=== PATIENT | male | born 1955 | race African-American/Black ===

== ENCOUNTER 2018-06-21 04:09 | Inpatient (IN) | payer OTHER ==
[~2018-06-21] VITALS: Ht 172.7 cm; Wt 85.0 kg
[~2018-06-21 04:09] MED LIST: CLON-379 PO; LEVE500S8 PO; LISI10TA2 PO; METO-319 PO
[2018-06-21] MEDS ORDERED: SOD CHLORIDE 0.9% 1,000 ML IV STA (04:31)
[2018-06-21] MEDS ORDERED: LORAZEPAM 2 MG INJ IV STA (04:31)
[2018-06-21] MEDS ORDERED: LEVETIRACETAM 1000 MG (PMX) 100 ML IVPB STA (04:31)
[2018-06-21] MEDS ORDERED: LORAZEPAM 2 MG INJ ONE (04:31)
[2018-06-21 07:57] VITALS: BP 177/107; PULSE 87; RESP 18
[2018-06-21 08:18] VITALS: PULSE 100
[2018-06-21 09:29] VITALS: Ht 172.7 cm; Wt 85.0 kg
--- NOTE | 2018-06-21 11:28 | HP ---
Date/Time of Note Date/Time of Note DATE: 06/21/18 TIME: 11:26 Admit Date/Time Admit Date/Time Admit Date/Time Jun 21, 2018 at 05:32 History & Physical HPI/ROS ROS All systems reviewed and are negative except as per history of present illness. PMHX Primary Care Physician Han Carranza MD [age]-year-old male who reportedly was brought to the emergency room by his brother. He has a history of seizure disorder and his brother had noted that he was mumbling and tried to wake him up and was unresponsive and saw him forming in the mouth so he knew he was having a seizure. The emergency room, he was treated with Keppra and Ativan, no further seizures have been noted. There is no fever, but the patient does have hyponatremia and elevated blood pressure. Is being admitted for breakthrough seizures. he tells me he's doing much better and is back to his ba . Social Hx Hx Alcohol Use: Yes (beer, 1-2 drinks, 06/20/18) Hx Substance Use: Yes Hx Tobacco Use: No Smoking Status: Current every day smoker Physical Exam Physical Exam Vital Signs Date Temp Pulse Resp B/P (MAP) Pulse Ox O2 O2 Flow FiO2 Time Delivery Rate 06/21/18 100 08:18 06/21/18 98.6 18 177/107 95 07:57 (130) 06/21/18 Nasal 2.0 07:47 Cannula Const: [XOXOXO] Head: [Atraumatic] Eyes: [Normal Conjunctiva] ENT: [Normal External Ears, Nose and Mouth.] Neck: [Full range of motion. No meningismus.] Resp: [Clear to auscultation bilaterally] Cardio: [Regular rate and rhythm, no murmurs] Abd: [Soft, non tender, non distended. Normal bowel sounds] Skin: [No petechiae or rashes] Back: [No midline or flank tenderness] Ext: [No cyanosis, or edema] Neuro: [Awake and alert] Psych: [Normal Mood and Affect] Result Diagram: 06/21/186 06/21/18445 Assessment/Plan Assessment/Plan Imaging 1. PROCEDURE: CT BRAIN WITHOUT CONTRAST CLINICAL INDICATION: 63-year-old male with seizure. The patient has a history of prior subdural hematoma. TECHNIQUE: The study was performed utilizing GE LightSpeed VCT 64-slice CT scanner. Direct axial sections were obtained from the foramen magnum to the vertex without the use of intravenous contrast material. Sagittal and coronal reformations were obtained. One or more the following dose reduction techniques were utilized: automated exposure control, adjustment of the mA and/or kV according to patient's size and/or use of iterative reconstruction technique. DICOM images are available. The images were viewed on a PACS workstation. CTD/ vol = 39.64 mGy; Total Exam DLP = 713.51 mGy.cm. COMPARISON: CT brain August 27, 2014; CT brain August 12, 2014; MRI brain July 21, 2014. FINDINGS: There is marked right inferior frontal encephalomalacia. There is extensive right anterior temporal encephalomalacia focal dystrophic calcification measuring approximately 9 x 9 x 6 mm in axial image 2-13. There is ex vacuo dilatation of the right frontal and temporal horns. There is mild prominence of the sulci and cisternal spaces consistent with diffuse volume loss with compensatory ventricular enlargement. There is no evidence for mass effect or midline shift. Calcifications are seen within the intracranial carotid arteries bilaterally. There is no evidence for acute intra or extra-axial blood. The bony calvarium is intact. There is mild mucosal thickening within the ethmoid air cells bilaterally. No air-fluid levels are noted. The mastoid air cells are without significant soft tissue. IMPRESSION: 1. Marked right inferior frontal and extensive right anterior temporal encephalomalacia with dystrophic calcification without significant change most likely from prior trauma. 2. Mild diffuse volume loss. 3. Vascular calcifications. 5. Mild mucosal thickening ethmoid air cells. .Mele Jeronimo MD, Date Time Electronically viewed and signed by .Mele Jeronimo MD, on 06/21/2018 05:59 .M/ CC: MORELIA MORALES [id number] PROCEDURE: CHEST - 1 VIEW CLINICAL INDICATION: 63-year-old male with seizure. TECHNIQUE: A single frontal AP semi-erect view of the chest was performed. The images were reviewed on a PACS workstation. COMPARISON: CR CHEST 08/12/2014 FINDINGS: The patient is mildly tilted to the left. The cardiomediastinal silhouette is within normal limits. There is a shallow inspiration. There is mild bibasilar subsegmental atelectasis. There is no evidence for focal consolidation. There is no evidence for congestive heart failure. There is no evidence for pneumothorax. There is an old left posterior fifth rib fracture deformity. IMPRESSION: 1. Shallow inspiration with mild bibasilar subsegmental atelectasis. 2. Old left posterior fifth rib fracture deformity. .Mele Jeronimo MD, MD Date Time Electronically viewed and signed by .Mele Jeronimo MD, MD on 06/21/2018 06:03 .M/ CC: MORELIA MORALES [id number] I reviewed EKG Rate: Within normal limits Rhythm: sinus Note: No ST elevation or depressions noted concerning for acute ischemic event. MRI brain with and without contrast July 2014 showed the followin. Right frontal/parietal subarachnoid hemorrhage, acute on chronic 2. Encephalomalacia in the right temporal lobe 3. 7 mm dural based enhancing mass arising from the right olfactory groove concerning for meningioma versus hemorrhagic focus as well as cerebral volume loss. At that time patient had left the hospital AGAINST MEDICAL ADVICE before workup could be completed. CT at this time shows marked right inferior frontal and extensive right anterior temporal encephalomalacia with calcification likely from prior hemorrhage assessment and plan: 1. Breakthrough seizures 2. History of intracranial hemorrhage with subsequent significant encephal omalacia 3. Prior MRI concern for possible mass 4. Hyponatremia which could be contributing to #1 5. History of seizure disorder rule out noncompliance consent #1 6. Hypertension with suboptimal control 7. Tobacco abuse 8. Marijuana user ? 9. Hyperbilirubinemia, unclear cause PLan: Medications Medications Home Meds Reported Medications Metoprolol Succinate* (Toprol XL*) 50 Mg Tab.er.24h, 50 MG PO BID, TAB 08/27/14 Clonidine Hcl* (Clonidine Hcl*) 0.1 Mg Tab, 0.1 MG PO BID, TAB 08/27/14 Levetiracetam* (Keppra*) 500 Mg/5 Ml Solution, 750 MG PO BID, BOTTLE 08/27/14 Lisinopril* (Lisinopril*) 10 Mg Tablet, 10 MG PO DAILY, TAB 08/27/14 JAY HENAO Jun 21, 2018 11:28
[2018-06-21] MEDS ORDERED: ZOLPIDEM 5 MG TAB PO PRN (11:30)
[2018-06-21] MEDS ORDERED: hydrALAzine 20 MG INJ IV PRN (11:30)
[2018-06-21] MEDS ORDERED: DOCUSATE SODIUM 100 MG CAP PO SCH (11:30)
[2018-06-21] MEDS ORDERED: LORAZEPAM 2 MG INJ IV PRN (11:30)
[2018-06-21] MEDS ORDERED: ONDANSETRON 4 MG INJ IV PRN (11:30)
[2018-06-21] MEDS ORDERED: ACETAMINOPHEN 325 MG TAB PO PRN (11:30)
[2018-06-21 11:32] VITALS: BP 197/102; PULSE 96; RESP 19
[2018-06-21] MEDS ORDERED: LISINOPRIL 10 MG TAB PO SCH (12:00)
[2018-06-21] MEDS ORDERED: METOPROLOL (XL) 50 MG TAB PO SCH (12:00)
--- NOTE | 2018-06-21 17:10 | DS ---
Date/Time of Note Date/Time of Note DATE: 06/21/18 TIME: 17:08 Discharge Summary Admission/Discharge Info Admit Date/Time Jun 21, 2018 at 05:32 Discharge Date/Time Jun 21, 2018 at 13:23 Patient Condition: Stable Hospital Course Shortly after my review, patient decided to leave against medical advice Patient chose to leave the hospital AGAINST MEDICAL ADVICE at his own insistence and and despite counseling against that. Medical risks/benefits were explained to him by members of medical staff and he verbalized understanding to those risks. Risks included additional pain and suffering, permanent disability or disfigurement, and even . He also understood that he was eligibile for further medical benefits including additional testing and treatments as well as radiologic imaging and medications. He also understood that he was able to return at any time for further testing and management if he so chooses. He verbalized understanding to all this. Hence no discharge instructions or prescriptions were given. . Home Meds Reported Medications Metoprolol Succinate* (Toprol XL*) 50 Mg Tab.er.24h, 50 MG PO BID, TAB 08/27/14 Clonidine Hcl* (Clonidine Hcl*) 0.1 Mg Tab, 0.1 MG PO BID, TAB 08/27/14 Levetiracetam* (Keppra*) 500 Mg/5 Ml Solution, 750 MG PO BID, BOTTLE 08/27/14 Lisinopril* (Lisinopril*) 10 Mg Tablet, 10 MG PO DAILY, TAB 08/27/14 Primary Care Provider Han Carranza MD Pending Labs Laboratory Tests Test 06/21/18 04:46 06/21/18 04:53 White Blood Count 4.4 10^3/ul (4.8-10.8) Red Blood Count 5.41 10^6/ul (4.70-6.10) Hemoglobin 14.0 g/dl (14.0-18.0) Hematocrit 42.8 % (42.0-52.0) Mean Corpuscular Volume 79.1 fl (82.0-101.0) Mean Corpuscular Hemoglobin 25.9 pg (29.0-33.0) Mean Corpuscular 32.7 g/dl (32.0-37.0) Hemoglobin Concent Red Cell Distribution Width 14.2 % (11.5-14.5) Platelet Count 299 10^3/UL (140-415) Mean Platelet Volume 8.7 fl (7.4-10.4) Immature Granulocytes % 0.500 % (0.001-0.429) Neutrophils % 61.9 % (39.0-77.0) Lymphocytes % 20.5 % (15.0-51.0) Monocytes % 14.4 % (0.0-11.0) Eosinophils % 1.8 % (0.0-7.0) Basophils % 0.9 % (0.0-2.0) Nucleated Red Blood Cells % 0.0 /100WBC (0.0-0.0) Immature Granulocytes # 0.020 10^3/ul (0.0-0.031) Neutrophils # 2.7 10^3/ul (1.6-7.5) Lymphocytes # 0.9 10^3/ul (0.8-2.9) Monocytes # 0.6 10^3/ul (0.3-0.9) Eosinophils # 0.1 10^3/ul (0.0-0.5) Basophils # 0.0 10^3/ul (0.0-0.1) Nucleated Red Blood Cells # 0.0 10^3/ul (0.0-0.0) Sodium Level 128 mmol/L (135-144) Potassium Level 4.2 mmol/L (3.5-5.1) Chloride Level 89 mmol/L (97-110) Carbon Dioxide Level 21 mmol/L (21-31) Anion Gap 18 (5-13) Blood Urea Nitrogen 10 mg/dl (7-20) Creatinine 1.05 mg/dl (0.61-1.24) Est Glomerular Filtrat > 60 mL/min (>60) Rate mL/min Glucose Level 146 mg/dl (70-220) Calcium Level 9.6 mg/dl (8.4-10.2) Phosphorus Level 4.6 mg/dl (2.5-4.9) Magnesium Level 1.9 mg/dl (1.7-2.5) Total Bilirubin 1.3 mg/dl (0.2-1.3) Direct Bilirubin 0.00 mg/dl (0.00-0.20) Indirect Bilirubin 1.3 mg/dl (0-1.1) Aspartate Amino 57 IU/L (15-46) Transf (AST/SGOT) Alanine 27 IU/L (13-69) Aminotransferase (ALT/SGPT) Alkaline Phosphatase 150 IU/L (42-121) Troponin I < 0.012 ng/ml (0.000-0.120) Total Protein 8.1 g/dl (6.1-8.1) Albumin 4.6 g/dl (3.3-4.9) Globulin 3.50 g/dl (1.3-3.2) Albumin/Globulin Ratio 1.31 Bedside Glucose 113 mg/dL (70-220) JAY HENAO Jun 21, 2018 17:10
[2018-06-21] MEDS ORDERED: LEVETIRACETAM IV 750 MG in DEXTROSE 5% 100 ML IVPB SCH (21:00)
[2018-06-21] MEDS ORDERED: FAMOTIDINE 20 MG INJ IV SCH (21:00)
[2018-06-22] MEDS ORDERED: METOPROLOL (XL) 50 MG TAB PO SCH (09:00)
[2018-06-22] MEDS ORDERED: LISINOPRIL 10 MG TAB PO SCH (09:00)
== END 2018-06-21 13:23 | disposition left against medical advice (07) | DRG 101 ==
LOC: E/R 04:09 → TEL 05:32
PROVIDERS: ADMIT Internal Medicine; ATTEND Internal Medicine
DX: G40.909 Epilepsy, unspecified, not intractable, without status epilepticus (principal); E87.1 Hypo-osmolality and hyponatremia; F17.210 Nicotine dependence, cigarettes, uncomplicated; F12.90 Cannabis use, unspecified, uncomplicated; I10 Essential (primary) hypertension; G93.89 Other specified disorders of brain; Z91.19 Patient's noncompliance with other medical treatment and regimen; Z53.21 Procedure and treatment not carried out due to patient leaving prior to being seen by health care provider
CPT/HCPCS: 70450; 71045; 80053; 82962; 83735; 84100; 84484; 85025; 93005; J1953; J2060; J7030